=== PATIENT | male | born 1970 | race Caucasian/White ===

== ENCOUNTER 2020-12-01 07:39 | Outpatient (REF) | payer OTHER, SELFPAY ==
[2020-12-01 10:51] LABS: MANUAL DIFF FLAG NO
[2020-12-01 10:54] LABS: Basophils Percent Auto 0.5 % (0-2); Eosinophils Absolute Auto 0.1 X10*3/uL (0.0-0.4); Eosinophils Percent Auto 2.1 % (0-4); Hematocrit 45.1 % (42-52); Hemoglobin 15.9 g/dl (14.0-18.0); Imm Gran Abs Auto 0.02 X10*3/uL (0.00-0.03); Imm Gran Pct Auto 0.5 % (0.0-0.4); Lymphocytes Absolute Auto 1.5 X10*3/uL (1.2-4.9); Lymphocytes Percent Auto 33.6 % (20-40); Mean Corpuscular HGB Conc 35.3 g/dl (31.0-36.0); Mean Corpuscular Hemoglobin 31.5 pg (27.0-33.0); Mean Corpuscular Volume 89.3 fL (80-98); Mean Platelet Volume 9.6 fL (9.4-12.4); Monocytes Absolute Auto 0.6 X10*3/uL (0.1-1.2); Monocytes Percent Auto 13.3 % (2-11); Neutrophils Absolute Auto 2.2 X10*3/uL (2.0-8.3); Platelet Count 235 X10*3/uL (160-400); Red Blood Count 5.05 X10*6/uL (4.60-5.80); Red Cell Distribution Width 12.3 % (11.0-16.0); White Blood Count 4.4 X10*3/uL (4.8-10.8)
== END 2020-12-01 07:40 | disposition home or self-care (01) ==
LOC: HO.WFDLDS 07:39
PROVIDERS: PCP Internal Medicine; Visit Provider Internal Medicine
DX: D72.819 Decreased white blood cell count, unspecified (principal)
CPT/HCPCS: 36415; 85025

== ENCOUNTER 2021-07-20 10:39 | Outpatient (REF) | payer OTHER, SELFPAY ==
[2021-07-20 10:42] LABS: MANUAL DIFF FLAG NO
[2021-07-20 10:50] LABS: Basophils Percent Auto 0.4 % (0-2); Eosinophils Absolute Auto 0.1 X10*3/uL (0.0-0.4); Hemoglobin 15.5 g/dl (14.0-18.0); Imm Gran Abs Auto 0.01 X10*3/uL (0.00-0.03); Imm Gran Pct Auto 0.2 % (0.0-0.4); Lymphocytes Absolute Auto 1.4 X10*3/uL (1.2-4.9); Lymphocytes Percent Auto 32.2 % (20-40); Mean Corpuscular HGB Conc 34.4 g/dl (31.0-36.0); Mean Corpuscular Hemoglobin 30.9 pg (27.0-33.0); Mean Corpuscular Volume 89.6 fL (80-98); Mean Platelet Volume 9.9 fL (9.4-12.4); Monocytes Absolute Auto 0.6 X10*3/uL (0.1-1.2); Neutrophils Absolute Auto 2.3 X10*3/uL (2.0-8.3); Neutrophils Percent Auto 52.2 % (45-73); Platelet Count 232 X10*3/uL (160-400); Red Blood Count 5.02 X10*6/uL (4.60-5.80); Red Cell Distribution Width 12.5 % (11.0-16.0); White Blood Count 4.5 X10*3/uL (4.8-10.8)
[2021-07-20 11:00] LABS: Appearance Urine CLEAR; Color Urine YELLOW; Glucose Urine UA NEG (NEG); Leukocyte Esterase Urine NEG (NEG); Nitrite Urine NEG (NEG); PH 5.5 (5.0-8.0); Specific Gravity - Urine >= 1.030 (1.005-1.025); Urine Blood NEG (NEG); Urine Ketones NEG (NEG); Urine Protein NEG (NEG-TRACE)
[2021-07-20 11:26] LABS: Alanine Aminotransferase 19 U/L (0-40); Alkaline Phosphatase 89 U/L (39-117); Anion Gap 13 (12-20); Aspartate Amino Transferase 19 U/L (5-37); Bilirubin Total 0.5 mg/dL (0.0-1.0); Blood Urea Nitrogen 18 mg/dL (9-16); Calcium 8.8 mg/dL (8.4-10.2); Carbon Dioxide 22 mmol/L (22-29); Chloride 109 mmol/L (96-108); Cholesterol 157 mg/dL; Estimated Glomerular Filt Rate > 60; Glucose Fasting 99 mg/dL (60-99); HDL Cholesterol 50 mg/dL; LDL Cholesterol Calculated 89 mg/dl; Sodium 140 mmol/L (135-145); Total Protein 6.8 g/dL (6.5-8.0); Triglycerides 92 mg/dL
[2021-07-20 11:44] LABS: PSA,Total (Free>4and<10) 1.77 ng/mL (0.00-4.00)
[2021-07-20 12:35] LABS: Reflex LDLD? No
== END 2021-07-20 10:40 | disposition home or self-care (01) ==
LOC: HO.LNP 10:39
PROVIDERS: Visit Provider Internal Medicine
DX: Z00.00 Encounter for general adult medical examination without abnormal findings (principal); Z12.5 Encounter for screening for malignant neoplasm of prostate; D72.819 Decreased white blood cell count, unspecified
CPT/HCPCS: 80053; 80061; 81003; 84153; 85025

== ENCOUNTER 2022-07-25 10:46 | Outpatient (REF) | payer OTHER, SELFPAY ==
[2022-07-25 10:49] LABS: MANUAL DIFF FLAG NO
[2022-07-25 10:53] LABS: Basophils Percent Auto 0.5 % (0-2); Eosinophils Absolute Auto 0.1 X10*3/uL (0.0-0.4); Eosinophils Percent Auto 2.1 % (0-4); Hematocrit 44.9 % (42.0-52.0); Hemoglobin 15.1 g/dl (14.0-18.0); Imm Gran Abs Auto 0.01 X10*3/uL (0.00-0.03); Imm Gran Pct Auto 0.3 % (0.0-0.4); Lymphocytes Absolute Auto 1.5 X10*3/uL (1.2-4.9); Lymphocytes Percent Auto 40.5 % (20-40); Mean Corpuscular HGB Conc 33.6 g/dl (31.0-36.0); Mean Corpuscular Volume 89.3 fL (80.0-98.0); Mean Platelet Volume 9.7 fL (9.4-12.4); Monocytes Absolute Auto 0.6 X10*3/uL (0.1-1.2); Monocytes Percent Auto 17.1 % (2-11); Neutrophils Absolute Auto 1.5 x10*3/uL (2.0-8.3); Neutrophils Percent Auto 39.5 % (45-73); Platelet Count 224 X10*3/uL (160-400); Red Blood Count 5.03 X10*6/uL (4.60-5.80); Red Cell Distribution Width 12.9 % (11.0-16.0); White Blood Count 3.8 X10*3/uL (4.8-10.8)
[2022-07-25 10:55] LABS: Appearance Urine Clear; Color Urine Yellow; Glucose Urine UA Negative (Negative); Leukocyte Esterase Urine Negative (Negative); Nitrite Urine Negative (Negative); Specific Gravity - Urine 1.025 (1.005-1.025); Urine Blood Negative (Negative); Urine Ketones Trace mg/dL (Negative); Urine Protein Negative (Neg-Trace)
[2022-07-25 11:07] LABS: Bacteria Urine None Seen (None Seen); Calcium Oxalate Crystals Urine Present; Hyaline Casts Urine 0-2 /LPF (0-2); RBC Urine 0-2 /HPF (0-2); Squamous Epithelial Cell Urine 0-2 /HPF (0-2); WBC Urine 0-5 /HPF (0-5)
[2022-07-25 11:11] LABS: Alanine Aminotransferase 19 U/L (0-40); Albumin Level 4.1 g/dL (3.5-5.0); Alkaline Phosphatase 72 U/L (39-117); Anion Gap 14 (12-20); Aspartate Amino Transferase 21 U/L (5-37); Bilirubin Total 0.5 mg/dL (0.0-1.0); Blood Urea Nitrogen 16 mg/dL (9-16); Calcium 8.8 mg/dL (8.4-10.2); Carbon Dioxide 23 mmol/L (22-29); Chloride 106 mmol/L (96-108); Cholesterol 160 mg/dL; Estimated Glomerular Filt Rate > 60; Glucose Fasting 95 mg/dL (60-99); HDL Cholesterol 53 mg/dL; LDL Cholesterol Calculated 96 mg/dl; Potassium 4.1 mmol/L (3.3-5.1); Sodium 139 mmol/L (135-145); Total Protein 6.7 g/dL (6.5-8.0); Triglycerides 55 mg/dL
[2022-07-25 11:31] LABS: PSA,Total (Free>4and<10) 1.98 ng/mL (0.00-4.00)
== END 2022-07-25 10:47 | disposition home or self-care (01) ==
LOC: HO.LNP 10:46
PROVIDERS: Visit Provider Internal Medicine
DX: Z00.00 Encounter for general adult medical examination without abnormal findings (principal); D72.819 Decreased white blood cell count, unspecified; Z12.5 Encounter for screening for malignant neoplasm of prostate
CPT/HCPCS: 80053; 80061; 81001; 84153; 85025

== ENCOUNTER 2022-07-26 10:43 | Outpatient (REF) | payer OTHER, SELFPAY ==
[2022-07-26 10:47] LABS: MANUAL DIFF FLAG NO
[2022-07-26 11:14] LABS: Basophils Percent Auto 0.4 % (0-2); Eosinophils Absolute Auto 0.1 X10*3/uL (0.0-0.4); Eosinophils Percent Auto 1.3 % (0-4); Hematocrit 44.7 % (42.0-52.0); Hemoglobin 15.3 g/dl (14.0-18.0); Imm Gran Abs Auto 0.01 X10*3/uL (0.00-0.03); Imm Gran Pct Auto 0.2 % (0.0-0.4); Lymphocytes Absolute Auto 1.6 X10*3/uL (1.2-4.9); Lymphocytes Percent Auto 34.6 % (20-40); Mean Corpuscular HGB Conc 34.2 g/dl (31.0-36.0); Mean Corpuscular Hemoglobin 30.3 pg (27.0-33.0); Mean Corpuscular Volume 88.5 fL (80.0-98.0); Mean Platelet Volume 9.8 fL (9.4-12.4); Monocytes Absolute Auto 0.6 X10*3/uL (0.1-1.2); Neutrophils Absolute Auto 2.2 x10*3/uL (2.0-8.3); Neutrophils Percent Auto 49.5 % (45-73); Platelet Count 244 X10*3/uL (160-400); Red Blood Count 5.05 X10*6/uL (4.60-5.80); Red Cell Distribution Width 12.8 % (11.0-16.0); White Blood Count 4.5 X10*3/uL (4.8-10.8)
== END 2022-07-26 10:44 | disposition home or self-care (01) ==
LOC: HO.LNP 10:43
PROVIDERS: Visit Provider Internal Medicine
DX: R79.89 Other specified abnormal findings of blood chemistry (principal)
CPT/HCPCS: 85025

== ENCOUNTER 2023-02-17 08:30 | Day surgery (SDC) | payer OTHER, SELFPAY ==
--- NOTE | 2023-02-16 10:38 | P.CONAN_ITS ---
Documented by User: Bridget Alberto NP 02/16/23 10:39 HPI - Anesthesia Eval Consult details Narrative: 52yo M for Colonoscopy [facility] Surgical History Surgical History (Updated 02/16/23 @ 08:40 by Marce North, SONA) H/O vasectomy History of colonoscopy Social History Social History Patient Tobacco Use Status: Never used Tobacco Substance Use Type Other:: thc gummies Substance Use Frequency: Occasionally Are you DNR?: No Advance Directives: No Advance Directives Information Provided: Yes Nutrition Risks: No Nutritional Risk Meds Allergies Allergy/AdvReac Type Severity Reaction Status Date / Time No Known Allergies Allergy Unverified 02/16/23 08:36 Home Medications Medication Instructions Recorded Confirmed Last Taken Type No Known Home Meds 02/17/23 02/17/23 Unknown History Exam Exam Date and Time: February 16, 2023 1038 Assessment and Plan Assessment Anesthesia Assessment: Chart Reviewed Documented by User: Callie Soto MD 02/17/23 11:03 [facility] Family History Family history of problems with anesthesia: No Surgical History Surgical History (Updated 02/16/23 @ 08:40 by Marce North RN) H/O vasectomy History of colonoscopy History of Problems with Anesthesia: No Social History Social History Patient Tobacco Use Status: Never used Tobacco Substance Use Type Other:: thc gummies Substance Use Frequency: Occasionally Are you DNR?: No Advance Directives: No Advance Directives Information Provided: Yes Nutrition Risks: No Nutritional Risk Meds Allergies Allergy/AdvReac Type Severity Reaction Status Date / Time No Known Allergies Allergy Unverified 02/16/23 08:36 Home Medications Medication Instructions Recorded Confirmed Last Taken Type No Known Home Meds 02/17/23 02/17/23 Unknown History Exam Airway Mallampati Class: II TM Dist: >3cm Neck ROM: Full Heart: rrr Lungs: cta Assessment and Plan Assessment Anesthesia Assessment: Anesthesia Plan Discussed and Smoking Cess. Discussed Final Anesthetic Review Family History of Problems with Anesthesia: No History of Problems with Anesthesia: No NPO: Yes ASA Class: I and II Final Preanesthetic Review: No Changes in Pt Med Stat, Meds/Allgs Chart Reviewed, Consent Obtained/Reviewed and Anes Risks/Benef Reviewed Patient Risk: Low Procedure Risk: Low Anesthetic Plan Anesthetic Plan: MAC: Disposition: Standard PACU
[2023-02-17 06:20] VITALS: BMI 26.6
[2023-02-17 08:33] VITALS: BP 106/69; PULSE 57; RESP 18; TEMP 36.6; O2SAT 98
[2023-02-17] MEDS: Lactated Ringers 1,000 ML 100 ML IVCONT (08:59)
[2023-02-17 11:48] VITALS: BP 90/50; PULSE 51; RESP 17; TEMP 36.6; O2SAT 96
--- NOTE | 2023-02-17 11:53 | PM.OP ---
Brief Operative Note Date of Service: 02/17/23 Pre-op diagnosis: Screening Post-op diagnosis: other (Polyps) Procedure: Colonoscopy to the cecum and TI with hot snare polypectomy x 2 Surgeon: Nilesh Duvall Was an Pediatric Dermatologist used for this Procedure?: No Estimated blood loss (mL): 0 Pathology: other (A. Polyp at 50cm B. Rectal polyp) Condition: stable Disposition: PACU
[2023-02-17 12:03] VITALS: BP 107/74; PULSE 48; RESP 16; TEMP 36.6; O2SAT 96
--- NOTE | 2023-02-17 13:28 | OP_ITS ---
DATE OF SERVICE: 02/17/2023 SURGEON: Nilesh Duvall MD INDICATIONS: The patient presents for evaluation of family history of colon polyps and colorectal cancer screening. Full consent has been obtained from him for this, including risks of bleeding and perforation. PREOPERATIVE DIAGNOSIS: POSTOPERATIVE DIAGNOSIS: PROCEDURE PERFORMED: Colonoscopy to the cecum and terminal ileum with hot snare polypectomy x 2. ESTIMATED BLOOD LOSS: COMPLICATIONS: ANESTHESIA: Monitored anesthesia care. ASSISTANTS: SPECIMENS: PREOPERATIVE DIAGNOSES: Colorectal cancer screening and family history of colon polyps. POSTOPERATIVE DIAGNOSES: Colorectal cancer screening and family history of colon polyps, colon polyps and internal hemorrhoids. DESCRIPTION OF PROCEDURE: The patient was placed in the left lateral decubitus position. The digital rectal exam revealed no abnormalities. The Olympus video pediatric colonoscope was entered into the rectum and advanced to the cecum with assistance of abdominal wall pressure. Once in the cecum, I did identify a normal-appearing cecal pouch with appendiceal orifice and a normal-appearing ileocecal valve. The terminal ileum was cannulated and appeared normal. The scope was withdrawn back in the colon. The entire cecum and ileocecal valve appeared normal. The scope was then slowly withdrawn assessing all mucosal surface carefully. Preparation was excellent. At 50 cm, there was an approximately 8 mm polyp which was removed by hot snare polypectomy and recovered by suction. The polypectomy site appeared clean, without any sign of residual polyp nor significant bleeding. In the distal rectum, seen in the forward-viewing position, there was an approximately 4 mm grossly adenomatous polyp which was removed by hot snare polypectomy and recovered by suction. The polypectomy site appeared clean, without any sign of residual polyp nor bleeding. I did not visualize any other polyps, colitis, or angiodysplasia. In the rectum, the scope was retroflexed visualizing internal hemorrhoids, but no other pathology. The scope was straightened out and withdrawn from the patient. He tolerated the procedure well and was returned to the recovery area in stable condition. IMPRESSION: 1. Colon polyps. 2. Internal hemorrhoids. PLAN: The results of the pathology will be checked. I would recommended a repeat colonoscopy in 5 years. He was advised not to use any aspirin or NSAIDs for 1 week. MD PHIL Mcdaniel/KATHERINE / [id number] [facility]
== END 2023-02-17 12:45 | disposition home or self-care (01) ==
PROVIDERS: PCP Internal Medicine; Visit Provider Internal Medicine
PROC: 0DJD8ZZ Inspection of Lower Intestinal Tract, Via Natural or Artificial Opening Endoscopic (ICD-10-PCS; CPT 45378; principal; 2023-02-17 09:40)
DX: Z12.11 Encounter for screening for malignant neoplasm of colon (principal); Z83.71 Family history of colonic polyps; D12.5 Benign neoplasm of sigmoid colon; K62.1 Rectal polyp; Z98.52 Vasectomy status
CPT/HCPCS: 45385; 88305; J2250

== ENCOUNTER 2023-09-12 10:32 | Outpatient (REF) | payer OTHER, SELFPAY ==
[2023-09-12 10:36] LABS: MANUAL DIFF FLAG NO
[2023-09-12 11:08] LABS: Appearance Urine Clear; Color Urine Yellow; Glucose Urine UA Negative (Negative); Leukocyte Esterase Urine Negative (Negative); Nitrite Urine Negative (Negative); PH 5.5 (5.0-9.0); Specific Gravity - Urine 1.025 (1.005-1.025); Urine Blood Negative (Negative); Urine Ketones Negative (Negative); Urine Protein Negative (Neg-Trace)
[2023-09-12 11:13] LABS: Basophils Percent Auto 0.2 % (0-2); Eosinophils Absolute Auto 0.1 X10*3/uL (0.0-0.4); Eosinophils Percent Auto 1.7 % (0-4); Hemoglobin 14.7 g/dl (14.0-18.0); Imm Gran Abs Auto 0.01 X10*3/uL (0.00-0.03); Imm Gran Pct Auto 0.2 % (0.0-0.4); Lymphocytes Absolute Auto 1.5 X10*3/uL (1.2-4.9); Lymphocytes Percent Auto 35.6 % (20-40); Mean Corpuscular HGB Conc 34.2 g/dl (31.0-36.0); Mean Corpuscular Hemoglobin 30.5 pg (27.0-33.0); Mean Corpuscular Volume 89.2 fL (80.0-98.0); Mean Platelet Volume 9.3 fL (9.4-12.4); Monocytes Absolute Auto 0.5 X10*3/uL (0.1-1.2); Neutrophils Absolute Auto 2.1 x10*3/uL (2.0-8.3); Neutrophils Percent Auto 50.3 % (45-73); Platelet Count 245 X10*3/uL (160-400); Red Blood Count 4.82 X10*6/uL (4.60-5.80); Red Cell Distribution Width 12.5 % (11.0-16.0); White Blood Count 4.1 X10*3/uL (4.8-10.8)
[2023-09-12 11:14] LABS: Bacteria Urine None Seen (None Seen); Hyaline Casts Urine 0-2 /LPF (0-2); RBC Urine 0-2 /HPF (0-2); Squamous Epithelial Cell Urine 0-2 /HPF (0-2); WBC Urine 0-5 /HPF (0-5)
[2023-09-12 11:30] LABS: Alanine Aminotransferase 21 U/L (0-40); Alkaline Phosphatase 67 U/L (39-117); Anion Gap 8 (12-20); Aspartate Amino Transferase 22 U/L (5-37); Bilirubin Total 0.8 mg/dL (0.0-1.0); Blood Urea Nitrogen 14 mg/dL (9-16); Calcium 8.7 mg/dL (8.4-10.2); Carbon Dioxide 30 mmol/L (22-29); Chloride 105 mmol/L (96-108); Cholesterol 151 mg/dL (<200); Estimated Glomerular Filt Rate > 60; Glucose Random 92 mg/dL (60-115); HDL Cholesterol 54 mg/dL (>40); LDL Cholesterol Calculated 89 mg/dL (<100); Potassium 3.7 mmol/L (3.3-5.1); Sodium 139 mmol/L (135-145); Total Protein 6.8 g/dL (6.5-8.0); Triglycerides 43 mg/dL (<150)
[2023-09-12 11:40] LABS: PSA,Total (Free>4and<10) 2.59 ng/mL (0.00-4.00)
== END 2023-09-12 10:33 | disposition home or self-care (01) ==
LOC: HO.LNP 10:32
PROVIDERS: Visit Provider Internal Medicine
DX: Z00.00 Encounter for general adult medical examination without abnormal findings (principal); Z12.5 Encounter for screening for malignant neoplasm of prostate; D72.819 Decreased white blood cell count, unspecified
CPT/HCPCS: 80053; 80061; 81001; 84153; 85025

== ENCOUNTER 2024-09-24 11:28 | Outpatient (REF) | payer OTHER, SELFPAY ==
[2024-09-24 11:30] LABS: MANUAL DIFF FLAG NO
[2024-09-24 12:36] LABS: Basophils Percent Auto 0.5 % (0-2); Eosinophils Absolute Auto 0.1 X10*3/uL (0.0-0.4); Eosinophils Percent Auto 1.9 % (0-4); Hematocrit 44.7 % (42.0-52.0); Hemoglobin 15.5 g/dl (14.0-18.0); Imm Gran Abs Auto 0.01 X10*3/uL (0.00-0.03); Imm Gran Pct Auto 0.3 % (0.0-0.4); Lymphocytes Absolute Auto 1.3 X10*3/uL (1.2-4.9); Lymphocytes Percent Auto 35.6 % (20-40); Mean Corpuscular HGB Conc 34.7 g/dl (31.0-36.0); Mean Corpuscular Hemoglobin 31.3 pg (27.0-33.0); Mean Corpuscular Volume 90.1 fL (80.0-98.0); Mean Platelet Volume 9.5 fL (9.4-12.4); Monocytes Absolute Auto 0.5 X10*3/uL (0.1-1.2); Monocytes Percent Auto 13.6 % (2-11); Neutrophils Absolute Auto 1.8 x10*3/uL (2.0-8.3); Neutrophils Percent Auto 48.1 % (45-73); Platelet Count 232 X10*3/uL (160-400); Red Blood Count 4.96 X10*6/uL (4.60-5.80); Red Cell Distribution Width 12.5 % (11.0-16.0); White Blood Count 3.8 X10*3/uL (4.8-10.8)
[2024-09-24 12:40] LABS: Appearance Urine Clear; Color Urine Yellow; Glucose Urine UA Negative (Negative); Leukocyte Esterase Urine Negative (Negative); Nitrite Urine Negative (Negative); PH 5.5 (5.0-9.0); Specific Gravity - Urine 1.025 (1.005-1.025); Urine Blood Negative (Negative); Urine Ketones Negative (Negative); Urine Protein Negative (Neg-Trace)
[2024-09-24 12:49] LABS: Bacteria Urine None Seen (None Seen); Hyaline Casts Urine 0-2 /LPF (0-2); RBC Urine 0-2 /HPF (0-2); Squamous Epithelial Cell Urine 0-2 /HPF (0-2); WBC Urine 0-5 /HPF (0-5)
[2024-09-24 12:50] LABS: Alanine Aminotransferase 28 U/L (0-40); Alkaline Phosphatase 60 U/L (39-117); Anion Gap 7 (12-20); Aspartate Amino Transferase 33 U/L (5-37); Bilirubin Total 0.6 mg/dL (0.0-1.0); Blood Urea Nitrogen 15 mg/dL (9-16); Calcium 8.5 mg/dL (8.4-10.2); Carbon Dioxide 28 mmol/L (22-29); Chloride 106 mmol/L (96-108); Cholesterol 153 mg/dL (<200); Estimated Glomerular Filt Rate > 60; Glucose Fasting 98 mg/dL (60-99); HDL Cholesterol 52 mg/dL (>40); LDL Cholesterol Calculated 92 mg/dL (<100); Potassium 3.9 mmol/L (3.3-5.1); Sodium 137 mmol/L (135-145); Total Protein 6.6 g/dL (6.5-8.0); Triglycerides 47 mg/dL (<150)
[2024-09-24 20:34] LABS: PSA,Total (Free>4and<10) 2.49 ng/mL (0.00-4.00)
--- OUTSIDE RECORDS SUMMARY | 2024-10-01 13:26 | XMS_ITS ---
Author Organization Yobani Moran MD Address [address] [place] [phone] Care Team Providers Care Front Desk Team Member Name Role Phone Yobani Moran Primary Care Provider [phone] RESULTS Component Value Reference Range Notes Complete Blood Count Auto Di ff Reviewed date:09/24/2024 12:47:41 PM Interpretation: Performing Lab:[facility], [address] [place] [phone] Notes/Report: White Blood Count 3.8 4.8-10.8 X10*3/uL [...] NRBC Abs Auto 0.000 0.0-0.012 X10*3/uL Comprehensive [place]. Panel Fa st Reviewed date:09/24/2024 01:25:45 PM Interpretation: Performing Lab:[facility], [address] [place] [phone] Notes/Report: Sodium 137 135-145 mmol/L Potassium 3.9 [...] Panel Reviewed date:09/24/2024 01:25:53 PM Interpretation: Performing Lab:[facility], [address] [place] [phone] Notes/Report: Triglycerides 47 <150 mg/dL Desirable Triglyceride: [...] (Free>4and<10) Reviewed date:09/25/2024 07:19:05 PM Interpretation: Performing Lab:[address] [phone] Notes/Report: PSA,Total (Free>4and<10) 2.49 0.00-4.00 ng/mL A [...] t Reviewed date:09/24/2024 04:50:00 PM Interpretation: Performing Lab:[facility], [address] [place] [phone] Notes/Report: Urine, Clean Catch Color Urine Yellow Appearance Urine Clear PH 5.5 5.0-9.0 Glucose Urine UA Negative Negative mg/dL Urine Blood Negative Negative Specific [place] - Urine 1.025 1.005-1.025 Urine Protein Negative Neg-Trace mg/dL Urine Ketones Negative Negative mg/dL Nitrite Urine Negative Negative Leukocyte Esterase Urine Negative Negative RBC Urine 0-2 0-2 /HPF WBC Urine 0-5 0-5 /HPF Squamous Epithelial Cell Urine 0-2 0-2 /HPF Bacteria Urine None Seen None Seen Hyaline Casts Urine 0-2 0-2 /LPF REASON FOR VISIT yearly fasting labs IMMUNIZATIONS Vaccine Route Administration Date Status Comme nts Fluarix Quadrivalent - 150 IM Intramuscular 09/24/2024 Adm inistered Encounters Encounter Location Date Provider Diagnosis Yobani Moran MD [address] [place] [phone] 09/24/2024 Yobani Moran Blood tests for routine general physical examination Z00.00 ; Encounter for immunization Z23 and Leukopenia, unspecified type D72.819 ASSESSMENTS Encounter Date Diagnosis Assessment Notes Treatment Notes Treatment Clinical Notes 09/24/2024 Blood tests for routine general physical examination (ICD-10 - Z00.00) 09/24/2024 Encounter for immunization (ICD-10 - Z23) 09/24/2024 Leukopenia, unspecified type (ICD-10 - D72.819) PLAN OF TREATMENT Next Appt Details Provider Name:Yobani camara, 09/26/2025 07:30:00 AM, [address] [place] [address], [address], [phone], Provider Name:Yobani camara, 10/06/2025 09:30:00 AM, [address] [place] [address], [place] [address], [place], [place], [phone],
--- OUTSIDE RECORDS SUMMARY | 2024-10-01 13:26 | XMS_ITS | Patient Health Record ---
Author Organization Yobani Moran MD Address [address] [place], [place] [phone] Care Team Providers Care Manager Systems Name Role Phone Yobani Moran Primary Care Provider ALLERGIES No Known Allergies RESULTS Component Value Reference Range Notes Stacia Matias Reviewed date:09/24/2024 12:43:46 PM Interpretation: Performing Lab:[facility], [address] [place] [phone] Notes/Report: Stacia Matias See Note Specimen held untested for 24 hours; Call to request Chemistry testing. Complete Blood Count Auto Di ff Reviewed date:09/24/2024 12:47:41 PM Interpretation: Performing Lab:[facility], [address] [place] [phone] Notes/Report: White Blood Count 3.8 4.8-10.8 X10*3/uL [...] NRBC Abs Auto 0.000 0.0-0.012 X10*3/uL Comprehensive [place]. Panel Fa st Reviewed date:09/24/2024 01:25:45 PM Interpretation: Performing Lab:[facility], [address] [place] [phone] Notes/Report: Sodium 137 135-145 mmol/L Potassium 3.9 [...] Panel Reviewed date:09/24/2024 01:25:53 PM Interpretation: Performing Lab:[address] [phone] Notes/Report: Triglycerides 47 <150 mg/dL Desirable Triglyceride: [...] (Free>4and<10) Reviewed date:09/25/2024 07:19:05 PM Interpretation: Performing Lab:[address] [phone] Notes/Report: PSA,Total (Free>4and<10) 2.49 0.00-4.00 ng/mL A [...] [place] i Chemiluminescent Microparticle Immunoassay (CMIA) [facility]/rfl[facility] Cul t Reviewed date:09/24/2024 04:50:00 PM Interpretation: Performing Lab:[facility], [address] [place] [phone] Notes/Report: Urine, Clean Catch Color Urine Yellow Appearance Urine Clear PH 5.5 5.0-9.0 Glucose Urine UA Negative Negative mg/dL Urine Blood Negative Negative Specific [place] - Urine 1.025 1.005-1.025 Urine Protein Negative Neg-Trace mg/dL Urine Ketones Negative Negative mg/dL Nitrite Urine Negative Negative Leukocyte Esterase Urine Negative Negative RBC Urine 0-2 0-2 /HPF WBC Urine 0-5 0-5 /HPF Squamous Epithelial Cell Urine 0-2 0-2 /HPF Bacteria Urine None Seen None Seen Hyaline Casts Urine 0-2 0-2 /LPF REASON FOR REFERRAL No Information MEDICATIONS Medication SIG (Take, Route, Fr equency, Duration) Notes Start Date End Date Status Advil 200 MG 1 tablet with food o r milk as needed Orally Three times a day Not-Taking IMMUNIZATIONS Vaccine Route Administration Date Status Comme nts Flu Vaccine IM Intramuscular 06/29/2012 Administered Flu Vaccine IM Intramuscular 09/06/2013 Administered Flu Vaccine IM Intramuscular 09/05/2014 Administered Fluarix Quadrivalent IM Intramuscular 07/27/2015 Administe red Fluarix Quadrivalent IM Intramuscular 11/07/2017 Administe red Fluarix Quadrivalent IM Intramuscular 08/14/2018 Administe red Fluarix Quadrivalent IM Intramuscular 07/09/2019 Administe red Fluarix Quadrivalent IM Intramuscular 07/15/2020 Administe red Fluarix Quadrivalent IM Intramuscular 07/20/2021 Administe red SARS-COV-2 Pfizer Unknown 12/12/2020 Administered SARS-COV-2 Pfizer Unknown 01/01/2021 Administered Fluarix Quadrivalent IM Intramuscular 09/12/2023 Administe red Fluarix Quadrivalent - 150 IM Intramuscular 09/24/2024 Adm inistered SOCIAL HISTORY Tobacco Use: Social History Observation Description Date Details (start date - stop date) Never Smoker NA - NA Sex Assigned At : Social History Observation Description Sex Assigned At Unknown Tobacco Use/Smoking Question Answer Notes Patient is [...] Never (0 point) Points 1 Interpretation Negative PROBLEMS Problem Type ICD Code Onset Dates Problem Status W/U Status Risk SNOMED Code Notes Problem Leukopenia, unspecified type (D72.819) Active confirmed 09041520 VITAL SIGNS Blood pressure diastolic 66 mm Hg 09/30/2024 Height 67 in 09/30/2024 Blood pressure systolic 92 mm Hg 09/30/2024 Weight 170 lbs 09/30/2024 BMI 26.62 kg/m2 09/30/2024 Encounters Encounter Location Date Provider Diagnosis Yobani Moran MD [address] [place] [address] [address] [place] [phone] 09/30/2024 Yobani Moran Leukopenia, unspecified type D72.819 and Annual physical exam Z00.00 Yobani Moran MD [address] [place] [address] Drive [address] [place] [phone] 09/24/2024 Yobani Moran Blood tests for routine general physical examination Z00.00 ; Encounter for immunization Z23 and Leukopenia, unspecified type D72.819 ASSESSMENTS Encounter Date Diagnosis Assessment Notes Treatment Notes Treatment Clinical Notes 09/30/2024 Annual physical exam (ICD-10 - Z00.00) 09/30/2024 Leukopenia, unspecified type (ICD-10 - D72.819) remains stable 09/24/2024 Encounter for immunization (ICD-10 - Z23) 09/24/2024 Blood tests for routine general physical examination (ICD-10 - Z00.00) 09/24/2024 Leukopenia, unspecified type (ICD-10 - D72.819) 09/30/2024 Other stable PLAN OF TREATMENT Pending Test Test Name Order Date Electrocardiogram (EKG) 04/08/2016 Electrocardiogram (EKG) 06/23/2017 Electrocardiogram (EKG) 07/05/2018 Electrocardiogram (EKG) 07/12/2019 Stress Test 12/15/2016 Next Appt Details Provider Name:Yobani camara, 09/26/2025 07:30:00 AM, [address], [address], [place], [place], [phone], Provider Name:Yobani Payan ier, 10/06/2025 09:30:00 AM, [address], [address], [place], [place], [phone], Insurance Providers Payer Name Payer Address Payer Phone Subscriber Number Group Number Insured Name Patient Relationship to Insured Coverage Start Date Coverage End Date [facility] [address] [place] [phone] [id number] Rowdy Gabriel Self - patient is the insured MEDICAL (GENERAL) HISTORY Medical History History ICD Code colonoscopy 06/2011 - repeat 5 years; colonoscopy w/Dr. Duvall 04/07/17 - repeat 5 years-2021. Colonoscopy 02/17/23 repeat 5 years
--- OUTSIDE RECORDS SUMMARY | 2024-10-01 13:26 | XMS_ITS ---
Author Organization Yobani Moran MD Address [address] [place] [phone] Care Team Providers Care Right Of Way Worker Name Role Phone [employer]Yobani [employer] Primary Care Provider ALLERGIES No Known Allergies RESULTS Component Value Reference Range Notes Occult Blood, Stool, Guaiac Reviewed date:09/22/2023 11:15:27 AM Interpretation:Negative Performing Lab: Notes/Report: Negative Occult Blood, Stool, Guaiac Neg REASON FOR REFERRAL Reason snoring sleep study Diagnosis 1 Snoring (R06.83) Referral Organization Yobani Moran MD Referring Provider First Name Yobani Referring Provider Last Name Dean Referring Provider Speciality Internal M edicine Referred Provider Tania Solomon Referred Provider Specialty Neurology General Notes Myrtle George 11:57:51 AM EST > info faxed , Myrtle George 09/28/2023 01:52:47 PM EST > appt is Dr. Parham Referral Priority Routine Referral Appointment Date 11/06/2023 REASON FOR VISIT annual visit states patient snores, No Covid symptoms MEDICATIONS Medication SIG (Take, Route, Fr equency, Duration) Notes Start Date End Date Status Advil 200 MG 1 tablet with food o r milk as needed Orally Three times a day Not-Taking SOCIAL HISTORY Tobacco Use: Social History Observation [...] Never (0 point) Points 1 Interpretation Negative VITAL SIGNS BMI 26.31 kg/m2 09/22/2023 Blood pressure systolic 102 mm Hg 09/22/20 23 Blood pressure diastolic 60 mm Hg 023 Height 67 in 09/22/2023 Weight 168 lbs 09/22/2023 Encounters Encounter Location Date Provider Diagnosis Yobani Moran MD 10 [facility] [address] [place] [phone] 09/22/2023 Yobani Moran Snoring R06.83 ; Annual physical exam Z00.00 ; Family hx of melanoma Z80.8 ; Colon cancer screening Z12.11 ; Depression screening Z13.31 and Guaiac + stool R19.5 ASSESSMENTS Encounter Date Diagnosis Assessment Notes Treatment Notes Treatment Clinical Notes 09/22/2023 Snoring (ICD-10 - R06.83) send for sleep study 09/22/2023 Annual physical exam (ICD-10 - Z00.00) labs reviewed and discussed with patient 09/22/2023 Family hx of melanoma (ICD-10 - Z80.8) will go to dermatology/ patient will be calling to set up his own appt 09/22/2023 Colon cancer screening (ICD-10 - Z12.11) guaiac negative 09/22/2023 Depression screening (ICD-10 - Z13.31) negative screen 09/22/2023 Guaiac + stool (ICD-10 - R19.5) was difficult to do the rectal as he was very tense and he had a colonoscopy this year. no need for further evaluation at this time PLAN OF TREATMENT Treatment Notes Assessment Notes Snoring send for sleep study Annual physical exam labs reviewed and d iscussed with patient Family hx of melanoma will go to dermato logy/ patient will be calling to set up his own appt Colon cancer screening guaiac negative Depression screening negative screen Guaiac + stool was difficult to do the rectal as he was very tense and he had a colonoscopy this year. no need for further evaluation at this time Referrals Referral Date Details 11/06/2023 11/06/2023, snoring sleep study , Tania Solomon Next Appt Details Follow Up: 1 Year, Reason: Provider Name:Yobani camara, 09/26/2025 07:30:00 AM, [address] [place] [address], [address] [place] [address], [phone], Provider Name:Yobani camara, 10/06/2025 09:30:00 AM, [address] [place] [address], [address], [place], [place], [phone], Progress Notes * Examination Category Sub-Category Detail Notes General Examination GENERAL APPEARANCE: well dev eloped, [...] clubbing, cyanosi s, or edema MALE GENITOURINARY: circumcised, no peni le lesions or discharge, no testicular mass, testes descended bilaterally RECTAL EXAM: normal tone, no exte rnal hemorrhoids, no masses palpable, prostate normal, stool guaiacpositive ORAL CAVITY: mucosa moist History and Physical Notes * HPI (History of Present Illness) Category Sub-Category Detail Notes Depression Screening PHQ-9 Little inte rest or [...] patient have a cognition impair ment?: No Consultation Request Notes Referral Date Referring Provider Referred Provider Not jose de jesus 09/22/2023 Yobani Moran Rani snoring s lee study
--- OUTSIDE RECORDS SUMMARY | 2024-10-01 13:26 | XMS_ITS ---
Author Organization Yobani Moran MD Address [address] [place] [phone] Care Team Providers Care [employer] Repairer Name Role Phone Yobani Moran Primary Care Provider [phone] ALLERGIES No Known Allergies REASON FOR VISIT annual visit MEDICATIONS Medication SIG (Take, Route, Fr equency, [...] Points 1 Interpretation Negative VITAL SIGNS BMI 26.62 kg/m2 09/30/2024 Blood pressure systolic 92 mm Hg 09/30/20 24 Blood pressure diastolic 66 mm Hg 024 Height 67 in 09/30/2024 Weight 170 lbs 09/30/2024 Encounters Encounter Location Date Provider Diagnosis Yobani Moran MD [address] [place] [phone] 09/30/2024 Yobani Moran Leukopenia, unspecified type D72.819 and Annual physical exam Z00.00 ASSESSMENTS Encounter Date Diagnosis Assessment Notes Treatment Notes Treatment Clinical Notes 09/30/2024 Leukopenia, unspecified type (ICD-10 - D72.819) remains stable 09/30/2024 Annual physical exam (ICD-10 - Z00.00) 09/30/2024 Other stable PLAN OF TREATMENT Treatment Notes Assessment Notes Leukopenia, unspecified type remains sta ble Other stable Next Appt Details Provider Name:Yobani camara, 09/26/2025 07:30:00 AM, [address] [place] [address], [phone], Provider Name:Yobani camara, 10/06/2025 09:30:00 AM, [address] [place] [address], [phone], Progress Notes * Examination Category Sub-Category Detail [...] stool guaiac negative ORAL CAVITY: mucosa moist History and Physical [...]
--- OUTSIDE RECORDS SUMMARY | 2024-10-01 13:26 | XMS_ITS | Patient Health Record ---
Author Organization [facility] Address [address] [place] [phone] Care Team Providers Care Elementary [employer] Music Teacher Name Role Phone Dean DELACRUZ, Yobani Primary Care Provider Nilesh Clarke Unavailable [phone] ALLERGIES No Known Allergies REASON FOR REFERRAL No Information IMMUNIZATIONS Vaccine Route Administration Date Status Comme nts Influenza Unknown 12/16/2022 Refused SOCIAL HISTORY Sex Assigned At : Social History Observation Description Sex Assigned At Unknown PROBLEMS Problem Type ICD Code Onset Dates Problem Status W/U Status Risk SNOMED Code Notes Problem Encounter for screening for malignant neoplasm of colon (Z12.11) Active confirmed 955372238 Problem Encounter for screening for malignant neoplasm of rectum (Z12.12) Active confirmed Screening for malignant neoplasm of rectum (610834008) Problem Family history of colonic polyps (Z83.71) Active confirmed 293524646 Problem Preprocedural examination (Z01.818) Active confirmed 521507140 PLAN OF TREATMENT Future Test Test Name Order Date COLONOSCOPY 01/19/2017 COLONOSCOPY 12/16/2022 Insurance Providers Payer Name Payer Address Payer Phone Subscriber Number Group Number Insured Name Patient Relationship to Insured Coverage Start Date Coverage End Date [facility] [address] [place] [address] [id number] PIERCE OLMEDO Self - patient is the insured MEDICAL (GENERAL) HISTORY Medical History History ICD Code Screening colonoscopy 06-30-2011--negative except for internal hemorrhoids Denies [place],DM,CVA,Lung disease,renal dise ase Negative ETT 2016 Negative colonoscopy in 03/2017 Surgical History Surgery Date(Month/Year) vasectomy
== END 2024-09-24 11:29 | disposition home or self-care (01) ==
LOC: HO.LNP 11:28
PROVIDERS: Visit Provider Internal Medicine
DX: Z00.00 Encounter for general adult medical examination without abnormal findings (principal); D72.819 Decreased white blood cell count, unspecified; Z12.5 Encounter for screening for malignant neoplasm of prostate
CPT/HCPCS: 80053; 80061; 81001; 84153; 85025

== ENCOUNTER 2025-09-26 10:43 | Outpatient (REF) | payer BC, SELFPAY ==
--- OUTSIDE RECORDS SUMMARY | 2024-09-24 03:45 | XMS_ITS ---
Author Organization Yobani Moran MD Address [address] [place] [phone] Care Team Providers Care Forester Aide Name Role Phone Yobani Moran Primary Care Provider Results Component Value Reference Range Notes Complete Blood Count Auto Di ff Reviewed date:09/24/2024 12:47:41 PM Interpretation: Performing Lab:[facility], [address] [place] [phone] Notes/Report: White Blood Count 3.8 4.8-10.8 X10*3/uL Red Blood Count 4.96 4.60-5.80 X10*6/uL Hemoglobin 15.5 14.0-18.0 g/dl Hematocrit 44.7 42.0-52.0 % Mean Corpuscular Volume 90.1 80.0-98.0 fL Mean Corpuscular Hemoglobin 31.3 27.0-33.0 pg Mean Corpuscular HGB Conc 34.7 31.0-36.0 g/dl Red Cell Distribution Width 12.5 11.0-16.0 % Platelet Count 232 160-400 X10*3/uL Mean Platelet Volume 9.5 9.4-12.4 fL Neutrophils Percent Auto 48.1 45-73 % Imm Gran Pct Auto 0.3 0.0-0.4 % Lymphocytes Percent Auto 35.6 20-40 % Monocytes Percent Auto 13.6 2-11 % Eosinophils Percent Auto 1.9 0-4 % Basophils Percent Auto 0.5 0-2 % NRBC Pct Auto 0.0 0.0-0.2 /100WBC Neutrophils Absolute Auto 1.8 2.0-8.3 x10*3/u L Imm Gran Abs Auto 0.01 0.00-0.03 X10*3/uL Lymphocytes Absolute Auto 1.3 1.2-4.9 X10*3/u L Monocytes Absolute Auto 0.5 0.1-1.2 X10*3/uL Eosinophils Absolute Auto 0.1 0.0-0.4 X10*3/u L Basophils Absolute Auto 0.0 0.0-0.2 X10*3/uL NRBC Abs Auto 0.000 0.0-0.012 X10*3/uL Comprehensive Tyler. Panel Fa st Reviewed date:09/24/2024 01:25:45 PM Interpretation: Performing Lab:[facility], [address] [place] [phone] Notes/Report: Sodium 137 135-145 mmol/L Potassium 3.9 3.3-5.1 mmol/L Chloride 106 96-108 mmol/L Carbon Dioxide 28 22-29 mmol/L Anion Gap 7 12-20 Blood Urea Nitrogen 15 9-16 mg/dL Creatinine 0.86 0.5-1.4 mg/dL Estimated Glomerular Filt Rate > 60 Chronic Kidney Disease: Estimated GFR < 60 mL/min/1.73m2 Severe Kidney Disease: Estimated GFR < 15 mL/min/1.73m2 Glucose Fasting 98 60-99 mg/dL Calcium 8.5 8.4-10.2 mg/dL Bilirubin Total 0.6 0.0-1.0 mg/dL Aspartate Amino Transferase 33 5-37 U/L Alanine Aminotransferase 28 0-40 U/L Total Protein 6.6 6.5-8.0 g/dL Albumin Level 4.0 3.5-5.0 g/dL Alkaline Phosphatase 60 39-117 U/L Lipid Panel Reviewed date:09/24/2024 01:25:53 PM Interpretation: Performing Lab:[facility], [address] [place] [phone] Notes/Report: Triglycerides 47 <150 mg/dL Desirable Triglyceride: less than 150 mg/dL Borderline High Triglyceride 150-199 mg/dL High Triglyceride: 200-499 mg/dL Very High Triglyceride: greater than or equal to 5OO mg/dL Cholesterol 153 <200 mg/dL Desirable Cholesterol: less than 200 mg/dL Borderline High Cholesterol: 200-239 mg/dL High Cholesterol: greater than 239 mg/dL LDL Cholesterol Calculated 92 <100 mg/dL Desirable LDL: less than 100 mg/dL Near Optimal/Above Optimal LDL: 110-129 mg/dL Borderline High LDL: 130-159 mg/dL High LDL: 160-189 mg/dL Very High LDL: greater than or equal to 190 mg/dL HDL Cholesterol 52 >40 mg/dL Desirable HDL: greater than 40 mg/dL Note: This HDL assay may give artificially low results in patients with liver disease. PSA,Total (Free>4and<10) Reviewed date:09/25/2024 07:19:05 PM Interpretation: Performing Lab:[address] [phone] Notes/Report: PSA,Total (Free>4and<10) 2.49 0.00-4.00 ng/mL A Free PSA was not performed: The percentage of Free PSA can be used to enhance the differentiation of prostate cancer from benign prostatic disease in subjects whose PSA levels are between 4.0 and 10.0 ng/mL. For subjects whose PSA levels are below 4.0 or above 10.0 ng/mL, the risk of prostate cancer is determined on the basis of the PSA alone. Therefore the % Free PSA is recommended only for those subjects whose PSA levels are between 4.0 and 10.0 ng/mL. PSA methodology: River Alinity i Chemiluminescent Microparticle Immunoassay (CMIA) UA ClnCatch+Micro w/rflx Cul t Reviewed date:09/24/2024 04:50:00 PM Interpretation: Performing Lab:[facility], [address] [place] [phone] Notes/Report: Urine, Clean Catch Color Urine Yellow Appearance Urine Clear PH 5.5 5.0-9.0 Glucose Urine UA Negative Negative mg/dL Urine Blood Negative Negative Specific Isabella - Urine 1.025 1.005-1.025 Urine Protein Negative Neg-Trace mg/dL Urine Ketones Negative Negative mg/dL Nitrite Urine Negative Negative Leukocyte Esterase Urine Negative Negative RBC Urine 0-2 0-2 /HPF WBC Urine 0-5 0-5 /HPF Squamous Epithelial Cell Urine 0-2 0-2 /HPF Bacteria Urine None Seen None Seen Hyaline Casts Urine 0-2 0-2 /LPF REASON FOR VISIT yearly fasting labs Immunizations Vaccine Route Administration Date Status Comme nts Fluarix Quadrivalent - 150 IM Intramuscular 09/24/2024 Adm inistered Encounters Encounter Location Date Provider Diagnosis Yobani Moran MD [address] [place] [address] [place] [phone] 09/24/2024 Yobani Moran Blood tests for routine general physical examination Z00.00 ; Encounter for immunization Z23 and Leukopenia, unspecified type D72.819 Assessments Encounter Date Diagnosis (ICD Code) Assessment Notes Treatment Notes Treatment Clinical Notes Section Notes 09/24/2024 Blood tests for routine general physical examination (ICD-10 - Z00.00) 09/24/2024 Encounter for immunization (ICD-10 - Z23) 09/24/2024 Leukopenia, unspecified type (ICD-10 - D72.819) Plan Of Treatment Next Appt Details Provider Name:Yobani Payan ier, 10/06/2025 09:30:00 AM, [address] [place] [address], Suite [facility], [place], [place], [phone], Progress Notes * Rowdy OLMEDO KDOB:[birth year] (54 yo M)Acc No.[id number]:09/24/2024 Progress Note Patient: Ashley Rowdy VICTOR Provider: Nasreen Moran MD :1970 A ge:53 Y S ex:Male Date:09/24/2024 Address:[address] [place] [address], [place], [phone] Subjective: * Chief Complaints: * 1 . Yearly fasting labs. * Medical History: Objective: * Vitals: Assessment: * Assessment: 1. E ncounter for immunization - Z23 (Primary) 2 . B lood tests for routine general physical examination - Z00.00 3 . L eukopenia, unspecified type - D72.819 Plan: * Treatment: 2. L eukopenia, unspecified type L AB: Complete Blood Count Auto Diff (Collection Date & Time - 09/24/2024 07:15 AM) L AB: Comprehensive Tyler. Panel Fast (Collection Date & Time - 09/24/2024 07:15 AM) L AB: Lipid Panel (Collection Date & Time - 09/24/2024 07:15 AM) L AB: PSA,Total (Free>4and<10) (Collection Date & Time - 09/24/2024 07:15 AM) L AB: UA ClnCatch+Micro w/rflx Cult (Collection Date & Time - 09/24/2024 07:15 AM) * Immunizations: Fluarix Quadrivalent - 150 : 0.5 mL (Dose No:1) (Route: Intramuscular) given by Margaret Souza , Office Staff on Left Deltoid * Procedure Codes: 9 0656 FLU VACCINE NO PRESERV 3 & >, [address] IMMUNIZATION ADMIN, [address]5922 VENIPUNCT, ROUTINE* * * The named appointment provid er may or may not be the originator of this progress note, and it is not deemed complete until electronically signed by the appointment provider. Sign off status: Pending * Provider: Nasreen Moran MD Date: 11/25/2023 Generated for Brennen stoll/Shani/Madeleineitting on: 11/27/2024 12:51 PM EST
--- OUTSIDE RECORDS SUMMARY | 2024-09-30 04:30 | XMS_ITS ---
Author Organization Yobani Moran MD Address [address] [place] [phone] Care Team Providers Care Information Management Manager Name Role Phone Yobani Moran Primary Care Provider Allergies No Known Allergies REASON FOR VISIT annual visit Medications Medication SIG (Take, Route, Fr equency, Duration) Notes Start Date End Date Status Advil 200 MG 1 tablet with food o r milk as needed Orally Three times a day Not-Taking Social History Tobacco Use: Social History Observation Description Date Details (start date - stop date) Never Smoker NA - NA Tobacco Use/Smoking Question Answer Notes Patient is a nonsmoker Additional Findings: Tobacco Non-User Cu rrent non-smoker, currently using no form of tobacco Alcohol Screen Question Answer Notes Did you have a drink contain ing alcohol in the past year? Yes How often did you have a dri nk containing alcohol in the past year? Monthly or less (1 point) How many drinks did you have on a typical day when you were drinking in the past year? 1 or 2 drinks (0 point) How often did you have 6 or more drinks on one occasion in the past year? Never (0 point) Points 1 Interpretation Negative Vital Signs Blood pressure systolic 92 mm Hg 09/30/20 24 Blood pressure diastolic 66 mm Hg 024 Height 67 in 09/30/2024 Weight 170 lbs 09/30/2024 BMI 26.62 kg/m2 09/30/2024 Encounters Encounter Location Date Provider Diagnosis Yobani Moran MD [address] [place] [address] [place] [phone] 09/30/2024 Yobani Moran Leukopenia, unspecified type D72.819 and Annual physical exam Z00.00 Assessments Encounter Date Diagnosis (ICD Code) Assessment Notes Treatment Notes Treatment Clinical Notes Section Notes 09/30/2024 Leukopenia, unspecified type (ICD-10 - D72.819) remains stable 09/30/2024 Annual physical exam (ICD-10 - Z00.00) cholesterol at goal. family history of melanoma but no suspicious lesions. active and exercising daily with weights and cardio/ had colonoscopy last year anf repeat in 5 years 09/30/2024 Other stable Plan Of Treatment Treatment Notes Assessment Notes Leukopenia, unspecified type remains sta ble Annual physical exam cholesterol at goal . family history of melanoma but no suspicious lesions. active and exercising daily with weights and cardio/ had colonoscopy last year anf repeat in 5 years Other stable Next Appt Details Provider Name:Yobani Payan ier, 10/06/2025 09:30:00 AM, [address] [place] [address], Suite [facility], [place], [place], [phone], Progress Notes * Rowdy OLMEDO KDOB:[birth year] (53 yo M)Acc No.[id number]:09/30/2024 Progress Notes Patient: Rowdy Leonard Provider: Nasreen Moran MD :1970 A ge:53 Y S ex:Male Date:09/30/2024 Address:[facility] [address] , [place], [id number] Subjective: * Chief Complaints: * A nnual visit * HPI: D epression Screening: PHQ-9 L ittle interest or pleasure in doing things N ot at all, F eeling down, depressed, or hopeless N ot at all, T rouble falling or staying asleep, or sleeping too much N ot at all, F eeling tired or having little energy N ot at all, P oor appetite or overeating N ot at all, F eeling bad about yourself or that you are a failure, or have let yourself or your family down N ot at all, T rouble concentrating on things, such as reading the newspaper or watching television N ot at all, M oving or speaking so slowly that other people could have noticed; or the opposite, being so fidgety or restless that you have been moving around a lot more than usual N ot at all, T houghts that you would be better off or of hurting yourself in some way N ot at all, T otal Score 0 . I nterpretation and Intervention D epression Screening Findings N egative, F ollow-Up for Depression : review of PHQ-9 found negative result, no follow-up needed. C ommunication Needs: Communication Needs D oes the patient have a hearing impairment N o, D oes the patient have a vision impairment? N o, D oes the patient have a cognition impairment? N o. S AVIVA Questions: SDOH Questions I n the past year have you been worried about losing housing? N o, I n the past year have you or any family members you live with been unable to get any of the following when it was really needed? Check all that apply: N one. * ROS: G eneral/Constitutional: Change in appetite d enies. C hills d enies. F ever d enies. O phthalmologic: Blurred vision d enies. D ischarge d enies. P ain d enies. E NT: Decreased hearing d enies. S ore throat d enies.?Swollen glands d enies. E ndocrine: Cold intolerance d enies. E xcessive thirst d enies. H eat intolerance d enies. W eight loss d enies. R espiratory: Cough d enies. S hortness of breath at rest d enies. S hortness of breath with exertion d enies. W heezing d enies. C ardiovascular: Chest pain at rest d enies. C hest pain with exertion?denies. I rregular heartbeat d enies. S hortness of breath d enies. ? G astrointestinal: Abdominal pain d enies. C hange in bowel habits d enies. D iarrhea d enies. N ausea d enies. R ectal bleeding d enies. V omiting d enies . G enitourinary: Blood in urine d enies. D ifficulty urinating d enies. F requent urination d enies. M usculoskeletal: Painful joints d enies. W eakness d enies. ? S kin: Dry skin d enies. I tching d enies. D enies?Mole(s), changes in moles, new moles or any lesions of concern. D enies P hotosensitivity. R roque d enies. N eurologic: Dizziness d enies. F ainting d enies. H eadache?denies. * Medical History: * Surgical History: * Hospitalization/Major Diagno stic Procedure: * Family History: F ather: alive 79 yrs, diagnosed with Cancer. M other: alive 80 yrs. 1 brother(s) , 1 sister(s) . 2 daughter(s) . . No pertinent family medical history, Denies mental health/substance abuse family history, Denies mental health/substance abuse family history, No pertinent family medical history, No pertinent family medical history, No pertinent family medical history. * Social History: T obacco Use: T obacco Use/Smoking P atient is a n onsmoker, A dditional Findings: Tobacco Non-User C urrent non-smoker, currently using no form of tobacco. D rugs/Alcohol: A lcohol Screen D id you have a drink containing alcohol in the past year? Y es, H ow often did you have a drink containing alcohol in the past year? M onthly or less (1 point), H ow many drinks did you have on a typical day when you were drinking in the past year? 1 or 2 drinks (0 point), H ow often did you have 6 or more drinks on one occasion in the past year? N ever (0 point), P oints 1 , I nterpretation N egative. M iscellaneous: C affeine: yes, frequency: 80z can of coke x1. Children: yes. Community involvements: yes. Exercise: yes, 5-6 days a week running biking. Housing: owning. Living with: family. Marital status: . Occupation: works full-time. Pets: dog x1. no Travel outside of the [place]. * Medications: N ot-Taking/PRNAdvil 200 MG Tablet 1 tablet with food or milk as needed Orally Three times a dayMedication List reviewed and reconciled with the patientNot- Taking/PRN Advil 200 MG Tablet 1 tablet with food or milk as needed Orally Three times a dayMedication List reviewed and reconciled with the patient * Allergies: N .K.D.A.yes[Allergies Verified] Objective: * Vitals: H t: 67, Wt:170, BMI:26.62, BP:92/66. * P ast Orders: L ab:Complete Blood Count Auto Diff (Order Date - 09/24/2024) (Collection Date - 09/24/2024) Value Reference Range White Blood Count 3.8 L 4.8-10.8 - X10*3/uL Red Blood Count 4.96 4.60-5.80 - X10*6/uL Hemoglobin 15.5 14.0-18.0 - g/dl Hematocrit 44.7 42.0-52.0 - % Mean Corpuscular Volume 90.1 80.0-98.0 - fL Mean Corpuscular Hemoglobin 31.3 27.0-33.0 - pg Mean Corpuscular HGB Conc 34.7 31.0-36.0 - g/ dl Red Cell Distribution Width 12.5 11.0-16.0 - % Platelet Count 232 160-400 - X10*3/uL Mean Platelet Volume 9.5 9.4-12.4 - fL Neutrophils Percent Auto 48.1 45-73 - % Imm Gran Pct Auto 0.3 0.0-0.4 - % Lymphocytes Percent Auto 35.6 20-40 - % Monocytes Percent Auto 13.6 H 2-11 - % Eosinophils Percent Auto 1.9 0-4 - % Basophils Percent Auto 0.5 0-2 - % NRBC Pct Auto 0.0 0.0-0.2 - /100WBC Neutrophils Absolute Auto 1.8 L 2.0-8.3 - x10* 3/uL Imm Gran Abs Auto 0.01 0.00-0.03 - X10*3/uL Lymphocytes Absolute Auto 1.3 1.2-4.9 - X10* 3/uL Monocytes Absolute Auto 0.5 0.1-1.2 - X10*3/ uL Eosinophils Absolute Auto 0.1 0.0-0.4 - X10* 3/uL Basophils Absolute Auto 0.0 0.0-0.2 - X10*3/ uL NRBC Abs Auto 0.000 0.0-0.012 - X10*3/uL L ab:Comprehensive [place]. Panel Fast (Order Date - 09/24/2024) (Collection Date - 09/24/2024) Value Reference Range Sodium 137 135-145 - mmol/L Bilirubin Total 0.6 0.0-1.0 - mg/dL Aspartate Amino Transferase 33 5-37 - U/L Alanine Aminotransferase 28 0-40 - U/L Total Protein 6.6 6.5-8.0 - g/dL Albumin Level 4.0 3.5-5.0 - g/dL Alkaline Phosphatase 60 39-117 - U/L Potassium 3.9 3.3-5.1 - mmol/L Chloride 106 96-108 - mmol/L Carbon Dioxide 28 22-29 - mmol/L Anion Gap 7 L 12-20 - Blood Urea Nitrogen 15 9-16 - mg/dL Creatinine 0.86 0.5-1.4 - mg/dL Estimated Glomerular Filt Rate > 60 - Glucose Fasting 98 60-99 - mg/dL Calcium 8.5 8.4-10.2 - mg/dL L ab:Lipid Panel (Order Date - 09/24/2024) (Collection Date - 09/24/2024) Value Reference Range Triglycerides 47 <150 - mg/dL Cholesterol 153 <200 - mg/dL LDL Cholesterol Calculated 92 <100 - mg/dL HDL Cholesterol 52 >40 - mg/dL * Examination: G eneral Examination: GENERAL APPEARANCE: w ell developed, well nourished, in no acute distress. HEAD: n ormocephalic, atraumatic. EYES: p upils equal, round, reactive to light and accommodation, sclera non-icteric. EARS: n ormal. ORAL CAVITY: m ucosa moist. THROAT: c lear. NECK/THYROID: n barney supple, full range of motion, no cervical lymphadenopathy, no bruits. SKIN: w arm and dry, no suspicious lesions. HEART: r egular rate and rhythm, S1, S2 normal, no murmurs.? LUNGS: c lear to auscultation bilaterally. ABDOMEN: s oft, nontender, nondistended, bowel sounds present, normal, no organomegaly , no masses palpable. RECTAL EXAM: n ormal tone, no external hemorrhoids, no masses palpable, prostate normal, stool guaiac negative. MALE GENITOURINARY: c ircumcised , no penile lesions or discharge. EXTREMITIES: n o clubbing, cyanosis, or edema. NEUROLOGIC: n onfocal, motor strength normal upper and lower extremities, sensory exam intact. Assessment: * Assessment: 1. A nnual physical exam - Z00.00 (Primary) 2 . L eukopenia, unspecified type - D72.819? Plan: * Treatment: 2. L eukopenia, unspecified type Notes: remains stable 3. O thers Notes: stable * Procedure Codes: * * Sign off status: Completed true * Provider: Nasreen Moran MD Date: 12/01/2023 Generated for Brennen stoll/Shani/Madeleineitting on: 11/27/2024 12:50 PM EST History and Physical Notes * HPI (History of Present Illness) Category Sub-Category Detail Notes Category Not es Depression Screening PHQ-9 Little inte rest or pleasure in doing things: Not at all Feeling down, depressed, or hopeless: No t at all Trouble falling or staying asleep, or sl eeping too much: Not at all Feeling tired or having little energy: N ot at all Poor appetite or overeating: Not at all Feeling bad about yourself o r that you are a failure, or have let yourself or your family down: Not at all Trouble concentrating on thi ngs, such as reading the newspaper or watching television: Not at all Moving or speaking so slowly that other people could have noticed; or the opposite, being so fidgety or restless that you have been moving around a lot more than usual: Not at all Thoughts that you would be b trev off or of hurting yourself in some way: Not at all Total Score: 0 Interpretation and Intervention Depression Noris mcclendon Findings: Negative Follow-Up for Depression: : review of PH Q-9 found negative result, no follow-up needed SDOH Questions SDOH Questions In the past year have you been worried about losing housing?: No In the past year have you or any family members you live with been unable to get any of the following when it was really needed? Check all that apply:: None Communication Needs Communication Needs Does the patient have a hearing impairment: No Does the patient have a vision impairmen t?: No Does the patient have a cognition impair ment?: No Examination Category Sub-Category Detail Notes Category Not es General Examination GENERAL APPEARANCE: well dev eloped, well nourished, in no acute distress HEAD: normocephalic, atrau matic EYES: pupils equal, round, reactive to light and accommodation, sclera non-icteric EARS: normal THROAT: clear NECK/THYROID: neck supple, full ra nge of motion, no cervical lymphadenopathy, no bruits HEART: regular rate and rhy thm, S1, S2 normal, no murmurs LUNGS: clear to auscultatio n bilaterally ABDOMEN: soft, nontender, non distended, bowel sounds present, normal, no organomegaly , no masses palpable NEUROLOGIC: nonfocal, motor stre ngth normal upper and lower extremities, sensory exam intact SKIN: warm and dry, no valdez picious lesions EXTREMITIES: no clubbing, cyanosi s, or edema MALE GENITOURINARY: circumcised , no pen ile lesions or discharge RECTAL EXAM: normal tone, no exte rnal hemorrhoids, no masses palpable, prostate normal, stool guaiac negative ORAL CAVITY: mucosa moist
--- OUTSIDE RECORDS SUMMARY | 2025-09-26 02:30 | XMS_ITS ---
Author Organization Yobani Moran MD Address [address] [place] [phone] Care Team Providers Care Leasing Professional Name Role Phone Yobani Moran Primary Care Provider Results Component Value Reference Range Notes Complete Blood Count Auto Di ff (Not yet reviewed by provider) Interpretation: Performing Lab:[facility], [address] [place] [phone] Notes/Report: White Blood Count 4.1 4.8-10.8 X10*3/uL Red Blood Count 5.05 4.60-5.80 X10*6/uL Hemoglobin 15.7 14.0-18.0 g/dl Hematocrit 45.9 42.0-52.0 % Mean Corpuscular Volume 90.9 80.0-98.0 fL Mean Corpuscular Hemoglobin 31.1 27.0-33.0 pg Mean Corpuscular HGB Conc 34.2 31.0-36.0 g/dl Red Cell Distribution Width 12.5 11.0-16.0 % Platelet Count 244 160-400 X10*3/uL Mean Platelet Volume 9.7 9.4-12.4 fL Neutrophils Percent Auto 56.6 45-73 % Imm Gran Pct Auto 0.2 0.0-0.4 % Lymphocytes Percent Auto 27.8 20-40 % Monocytes Percent Auto 13.2 2-11 % Eosinophils Percent Auto 1.5 0-4 % Basophils Percent Auto 0.7 0-2 % NRBC Pct Auto 0.0 0.0-0.2 /100WBC Neutrophils Absolute Auto 2.3 2.0-8.3 x10*3/u L Imm Gran Abs Auto 0.01 0.00-0.03 X10*3/uL Lymphocytes Absolute Auto 1.1 1.2-4.9 X10*3/u L Monocytes Absolute Auto 0.5 0.1-1.2 X10*3/uL Eosinophils Absolute Auto 0.1 0.0-0.4 X10*3/u L Basophils Absolute Auto 0.0 0.0-0.2 X10*3/uL NRBC Abs Auto 0.000 0.0-0.012 X10*3/uL Comprehensive [place]. Panel Fa st (Not yet reviewed by provider) Interpretation: Performing Lab:[facility], [address] [place] [phone] Notes/Report: Sodium 141 135-145 mmol/L Potassium 4.5 3.3-5.1 mmol/L Chloride 109 96-108 mmol/L Carbon Dioxide 25 22-29 mmol/L Anion Gap 12 12-20 Blood Urea Nitrogen 19 9-16 mg/dL Creatinine 1.03 0.5-1.4 mg/dL Estimated Glomerular Filt Rate > 60 Chronic Kidney Disease: Estimated GFR < 60 mL/min/1.73m2 Severe Kidney Disease: Estimated GFR < 15 mL/min/1.73m2 Glucose Fasting 98 60-99 mg/dL Calcium 8.8 8.4-10.2 mg/dL Bilirubin Total 0.5 0.0-1.0 mg/dL Aspartate Amino Transferase 31 5-37 U/L Alanine Aminotransferase 32 0-40 U/L Total Protein 6.8 6.5-8.0 g/dL Albumin Level 4.3 3.5-5.0 g/dL Alkaline Phosphatase 80 39-117 U/L UA ClnCatch+Micro w/rflx Cul t (Not yet reviewed by provider) Interpretation: Performing Lab:[facility], [address] [place] [phone] Notes/Report: Urine, Clean Catch Color Urine Yellow Appearance Urine Clear PH 5.5 5.0-9.0 Glucose Urine UA Negative Negative mg/dL Urine Blood Negative Negative Specific [place] - Urine 1.025 1.005-1.025 Urine Protein Negative Neg-Trace mg/dL Urine Ketones Negative Negative mg/dL Nitrite Urine Negative Negative Leukocyte Esterase Urine Negative Negative RBC Urine 0-2 0-2 /HPF WBC Urine 0-5 0-5 /HPF Squamous Epithelial Cell Urine 0-2 0-2 /HPF Bacteria Urine None Seen None Seen Hyaline Casts Urine 0-2 0-2 /LPF Lipid Panel Reviewed date:09/26/2025 12:12:10 PM Interpretation: Performing Lab:[facility], [address] [place] [phone] Notes/Report: Triglycerides 42 <150 mg/dL Desirable Triglyceride: less than 150 mg/dL Borderline High Triglyceride 150-199 mg/dL High Triglyceride: 200-499 mg/dL Very High Triglyceride: greater than or equal to 5OO mg/dL Cholesterol 164 <200 mg/dL Desirable Cholesterol: less than 200 mg/dL Borderline High Cholesterol: 200-239 mg/dL High Cholesterol: greater than 239 mg/dL LDL Cholesterol Calculated 105 <100 mg/dL Desirable LDL: less than 100 mg/dL Near Optimal/Above Optimal LDL: 110-129 mg/dL Borderline High LDL: 130-159 mg/dL High LDL: 160-189 mg/dL Very High LDL: greater than or equal to 190 mg/dL HDL Cholesterol 51 >40 mg/dL Desirable HDL: greater than 40 mg/dL Note: This HDL assay may give artificially low results in patients with liver disease. REASON FOR VISIT FASTING LABS Encounters Encounter Location Date Provider Diagnosis Yobani Moran MD [address] [place], [place] [phone] 09/26/2025 Yobani Moran Blood tests for routine general physical examination Z00.00 and Leukopenia, unspecified type D72.819 Assessments Encounter Date Diagnosis (ICD Code) Assessment Notes Treatment Notes Treatment Clinical Notes Section Notes 09/26/2025 Blood tests for routine general physical examination (ICD-10 - Z00.00) 09/26/2025 Leukopenia, unspecified type (ICD-10 - D72.819) Plan Of Treatment Pending Test Test Name Order Date Complete Blood Count Auto Diff Comprehensive [place]. Panel Fast PSA,Total (Free>4and<10) 09/26/2025 UA ClnCatch+Micro w/rflx Cult 09/26/2025 Next Appt Details Provider Name:Yobani Payan ier, 10/06/2025 09:30:00 AM, [address] [place] [address], [address], [place], [place], [phone], Progress Notes * Rowdy OLMEDO KDOB:[birth year] (54 yo M)Acc No.[id number]:09/26/2025 Progress Note Patient: Rowdy CHADWICK Provider: Nasreen Moran MD :1970 A ge:54 Y S ex:Male Date:09/26/2025 Address:[address] [place] [address], [id number] Subjective: * Chief Complaints: * 1 . FASTING LABS. * Medical History: Objective: * Vitals: Assessment: * Assessment: 1. B lood tests for routine general physical examination - Z00.00 (Primary) 2 .?Leukopenia, unspecified type - D72.819 Plan: * Treatment: 2. L eukopenia, unspecified type L AB: Complete Blood Count Auto Diff (Collection Date & Time - 09/26/2025 07:30 AM) L AB: Comprehensive [place]. Panel Fast (Collection Date & Time - 09/26/2025 07:30 AM) L AB: PSA,Total (Free>4and<10) L AB: UA ClnCatch+Micro w/rflx Cult (Collection Date & Time - 09/26/2025 07:30 AM) L AB: Lipid Panel (Collection Date & Time - 09/26/2025 07:30 AM) * Procedure Codes: 3 6415 VENIPUNCT, ROUTINE* * * The named appointment provid er may or may not be the originator of this progress note, and it is not deemed complete until electronically signed by the appointment provider. Sign off status: Pending * Provider: Nasreen Moran MD Date: 11/27/2024 Generated for Brennen stoll/Shani/Marc on: 11/27/2024 12:51 PM EST
[2025-09-26 10:47] LABS: MANUAL DIFF FLAG NO
[2025-09-26 11:12] LABS: Hematocrit 45.9 % (42.0-52.0); Hemoglobin 15.7 g/dl (14.0-18.0); Imm Gran Abs Auto 0.01 X10*3/uL (0.00-0.03); Imm Gran Pct Auto 0.2 % (0.0-0.4); Lymphocytes Absolute Auto 1.1 X10*3/uL (1.2-4.9); Mean Corpuscular HGB Conc 34.2 g/dl (31.0-36.0); Mean Corpuscular Hemoglobin 31.1 pg (27.0-33.0); Mean Corpuscular Volume 90.9 fL (80.0-98.0); NRBC Abs Auto 0.000 X10*3/uL (0.0-0.012); NRBC Pct Auto 0.0 /100WBC (0.0-0.2); Platelet Count 244 X10*3/uL (160-400); Red Blood Count 5.05 X10*6/uL (4.60-5.80); White Blood Count 4.1 X10*3/uL (4.8-10.8)
[2025-09-26 11:28] LABS: Appearance Urine Clear; Glucose Urine UA Negative (Negative); PH 5.5 (5.0-9.0); Specific Gravity - Urine 1.025 (1.005-1.025)
[2025-09-26 12:09] LABS: Alanine Aminotransferase 32 U/L (0-40); Albumin Level 4.3 g/dL (3.5-5.0); Alkaline Phosphatase 80 U/L (39-117); Anion Gap 12 (12-20); Aspartate Amino Transferase 31 U/L (5-37); Blood Urea Nitrogen 19 mg/dL (9-16); Calcium 8.8 mg/dL (8.4-10.2); Carbon Dioxide 25 mmol/L (22-29); Chloride 109 mmol/L (96-108); Cholesterol 164 mg/dL (<200); Estimated Glomerular Filt Rate > 60; HDL Cholesterol 51 mg/dL (>40); Potassium 4.5 mmol/L (3.3-5.1); Sodium 141 mmol/L (135-145); Total Protein 6.8 g/dL (6.5-8.0); Triglycerides 42 mg/dL (<150)
--- OUTSIDE RECORDS SUMMARY | 2025-09-26 12:50 | XMS_ITS | Patient Health Record ---
Author Organization [facility] Address [address] [place] [phone] Care Team Providers Care Artificial Pearl Maker Name Role Phone Dean DELACRUZ, Yobani Primary Care Provider Nilesh Clarke Unavailable [phone] Allergies No Known Allergies Reason For Referral No Information Immunizations Vaccine Route Administration Date Status Comme nts Influenza Unknown 12/16/2022 Refused Social History Social History Additional Details Category Social Info Options Details Miscellaneous: Marital status: Occupation: Probation office r in [employer] [address] Section Notes: Nonsmoker; no sig alcohol Nonsmoker; no sig alcohol Problems Problem Type SNOMED Code ICD Code Onset Dates Problem Status W/U Status Risk Notes Problem Screening for malignant neoplasm of colon (141598547) Encounter for screening for malignant neoplasm of colon (Z12.11) Active confirmed Problem Screening for malignant neoplasm of rectum (633293435) Encounter for screening for malignant neoplasm of rectum (Z12.12) Active confirmed Problem Family history of polyp of colon (660655339) Family history of colonic polyps (Z83.71) Active confirmed Problem Preprocedural examination (167784888134182) Preprocedural examination (Z01.818) Active confirmed Plan Of Treatment Future Test Test Name Order Date COLONOSCOPY 01/19/2017 COLONOSCOPY 12/16/2022 Insurance Providers Payer Name Payer Address Payer Phone Subscriber Number Group Number Insured Name Patient Relationship to Insured Coverage Start Date Coverage End Date [employer] [address] [place] [address] [id number] PIERCE OLMEDO Self - patient is the insured Medical (General) History Medical History History ICD Code Screening colonoscopy 06-30-2011--negative except for internal hemorrhoids Denies [place],DM,CVA,Lung disease,renal dise ase Negative ETT 2016 Negative colonoscopy in 03/2017 Surgical History Surgery Date(Month/Year) vasectomy
--- OUTSIDE RECORDS SUMMARY | 2025-09-26 12:51 | XMS_ITS | Patient Health Record ---
Author Organization Yobani Moran MD Address [address] [place] [phone] Care Team Providers Care Portal Developer Name Role Phone Yobani Moran Primary Care Provider Allergies No Known Allergies Results Component Value Reference Range Notes Complete Blood Count Auto Di ff (Not yet reviewed by provider) Interpretation: Performing Lab:[facility], [address] [place] [phone] Notes/Report: White Blood Count 4.1 4.8-10.8 X10*3/uL [...] NRBC Abs Auto 0.000 0.0-0.012 X10*3/uL Comprehensive [place]. Panel Fa st (Not yet reviewed by provider) Interpretation: Performing Lab:[facility], [address] [place] [phone] Notes/Report: Sodium 141 135-145 mmol/L Potassium 4.5 [...] (Not yet reviewed by provider) Interpretation: Performing Lab:[facility], [address] [place] [phone] Notes/Report: Urine, Clean Catch Color Urine Yellow Appearance Urine Clear PH 5.5 5.0-9.0 Glucose Urine UA Negative Negative mg/dL Urine Blood Negative Negative Specific [place] - Urine 1.025 1.005-1.025 Urine Protein Negative Neg-Trace mg/dL Urine Ketones Negative Negative mg/dL Nitrite Urine Negative Negative Leukocyte Esterase Urine Negative Negative RBC Urine 0-2 0-2 /HPF WBC Urine 0-5 0-5 /HPF Squamous Epithelial Cell Urine 0-2 0-2 /HPF Bacteria Urine None Seen None Seen Hyaline Casts Urine 0-2 0-2 /LPF Lipid Panel Reviewed date:09/26/2025 12:12:10 PM Interpretation: Performing Lab:[facility], [address] [place] [phone] Notes/Report: Triglycerides 42 <150 mg/dL Desirable Triglyceride: [...] low results in patients with liver disease. Reason For Referral No Information Medications Medication SIG (Take, Route, Fr equency, Duration) Notes Start Date End Date Status Advil 200 MG 1 tablet with food o r milk as needed Orally Three times a day Not-Taking Immunizations Vaccine Route Administration Date Status Comme [...] - 150 IM Intramuscular 09/24/2024 Adm inistered Social History Tobacco Use: Social History Observation [...] Never (0 point) Points 1 Interpretation Negative Problems Problem Type SNOMED Code ICD Code Onset Dates Problem Status W/U Status Risk Notes Problem [id number] Leukopenia, unspecified type (D72.819) Active confirmed Vital Signs Blood pressure diastolic 66 mm Hg 09/30/2024 Height 67 in 09/30/2024 Blood pressure systolic 92 mm Hg 09/30/2024 Weight 170 lbs 09/30/2024 BMI 26.62 kg/m2 09/30/2024 Encounters Encounter Location Date Provider Diagnosis Yobani Moran MD [address] [place] [phone] 09/26/2025 Yobani Moran Blood tests for routine general physical examination Z00.00 and Leukopenia, unspecified type D72.819 Yobani Moran MD [address] [place] [phone] 09/30/2024 Yobani Moran Leukopenia, unspecified type D72.819 and Annual physical exam Z00.00 Assessments Encounter Date Diagnosis (ICD Code) Assessment Notes Treatment Notes Treatment Clinical Notes Section Notes 09/26/2025 Blood tests for routine general physical examination (ICD-10 - Z00.00) 09/30/2024 Leukopenia, unspecified type (ICD-10 - D72.819) remains stable 09/30/2024 Annual physical exam (ICD-10 - Z00.00) cholesterol at goal. family history of melanoma but no suspicious lesions. active and exercising daily with weights and cardio/ had colonoscopy last year anf repeat in 5 years 09/26/2025 Leukopenia, unspecified type (ICD-10 - D72.819) 09/30/2024 Other stable Plan Of Treatment Pending Test Test Name Order Date Electrocardiogram (EKG) 07/12/2019 Electrocardiogram (EKG) 04/08/2016 Electrocardiogram (EKG) 06/23/2017 Electrocardiogram (EKG) 07/05/2018 Stress Test 12/15/2016 Complete Blood Count Auto Diff 5 Comprehensive [place]. Panel Fast 5 PSA,Total (Free>4and<10) 09/26/2025 UA ClnCatch+Micro w/rflx Cult 09/26/2025 Next Appt Details Provider Name:Yobani Payan ier, 10/06/2025 09:30:00 AM, [address] [place] [address], [address], [place], [place], [phone], Insurance Providers Payer Name Payer Address Payer Phone Subscriber Number Group Number Insured Name Patient Relationship to Insured Coverage Start Date Coverage End Date [employer] [address] [place], [place] [id number] Rowdy Gabriel Self - patient is the insured Medical (General) History Medical History History ICD Code colonoscopy 06/2011 - repeat 5 years; colonoscopy w/Dr. Duvall 04/07/17 - repeat 5 years-2021. Colonoscopy 02/17/23 repeat 5 years
[2025-09-26 13:36] LABS: PSA,Total (Free>4and<10) 2.26 ng/mL (0.00-4.00)
== END 2025-09-26 10:44 | disposition home or self-care (01) ==
LOC: HO.LNP 10:43
PROVIDERS: Visit Provider Internal Medicine
DX: Z00.00 Encounter for general adult medical examination without abnormal findings (principal); Z12.5 Encounter for screening for malignant neoplasm of prostate; Z13.6 Encounter for screening for cardiovascular disorders; D72.819 Decreased white blood cell count, unspecified
CPT/HCPCS: 80053; 80061; 81001; 84153; 85025